=== PATIENT | female | born 1940 | race Caucasian/White ===

== ENCOUNTER → 2018-06-08 | Outpatient (REF) | payer MEDICARE, BC ==
[~2018-06-08] MED LIST: ADLT ASA LOW81 MG PO; ATACAND8 MG PO; ATROVENT NASAL0.03 % NAS; CALTRAT1 PO; CIPRO XR500 M1 OR; CIPRO500 MG OR; COZAAR100 MG PO; COZAAR50 MG PO; DEPO-MEDROL40 MG/ML IJ; FERROUS SULF325 M2 PO; FERROUS SULFAT325 MG PO; FLUARIX QUADRIV1 IN1 IM; FLUARIX QUADRIV1 INJ IM; FLULAVAL IM; HEMOCYTE PLU PO; HYDROCHLOROT25 MG PO; IPRATROPIUM0.03 % NAS; LEVAQUIN500 MG PO; LEVOTHYROXIN125 MCG PO; LEVOTHYROXIN75 MC1 PO; LEVOTHYROXIN88 MC1 PO; MEDDOSEPAK PO; MULT VITAMIN OR; MULTI VITAMN PO; MUPIROCIN2 % EX; NASCOBAL; NITRO-DUR0.4 MG/HR TD; NORITATE1 %; NORITATE1 % EX; NORITATE1 % TOP; PHENERGAN25 MG/TAB PO; PROVERA10 MG OR; SYNTHROID100 MCG PO; SYNTHROID112 MCG PO; SYNTHROID125 MCG OR; SYNTHROID125 MCG PO; VITAMIN B-12500 MCG PO; [UNRECOGNIZED DRUG - OTHER] OR
[2018-06-08 08:54] LABS: HEMATOCRIT 38.7 % (37.0-47.0); HEMOGLOBIN 12.4 g/dl (12.0-16.0); IMMATURE GRANULOCYTES 0.2 % (0.0-5.0); MEAN CORPUSCULAR HGB 31.7 pG CALC (26.0-32.0); NEUT# 2.69 thou/uL (2.00-7.15); RED BLOOD COUNT 3.91 mill/uL (4.20-5.60); RED CELL DISTRI WIDTH 12.4 % (11.5-15.5)
[2018-06-08 09:19] LABS: ALBUMIN 4.2 g/dL (3.2-5.0); BILIRUBIN, TOTAL 0.5 mg/dL (0.0-1.4); CREATININE 1.1 mg/dL (0.5-1.0); POTASSIUM 4.2 mmol/l (3.5-5.1); TOTAL PROTEIN 6.5 g/dL (6.3-8.2)
[2018-06-08 09:45] LABS: TSH, 3RD GENERATION 0.11 uIU/mL (0.47 - 4.68)
== END | disposition home or self-care (01) ==
LOC: LAB 08:22
PROVIDERS: ATTEND Internal Medicine Geriatric Medicine
DX: E03.9 Hypothyroidism, unspecified (principal); I10 Essential (primary) hypertension; E78.5 Hyperlipidemia, unspecified

== ENCOUNTER 2018-09-16 07:04 | Day surgery (SDC) | payer MEDICARE, BC ==
[~2018-09-16 07:04] MED LIST changes: +MULTI VITAMIN1 TAB PO
[2018-09-16 09:23] VITALS: BP 142/64
== END 2018-09-16 09:30 | disposition home or self-care (01) ==
LOC: ENDO 07:04
PROVIDERS: ATTEND Internal Medicine Gastroenterology
PROC: 0DBL8ZX Excision of Transverse Colon, Via Natural or Artificial Opening Endoscopic, Diagnostic (ICD-10-PCS; principal; 2018-09-16)
PROC: 0DBK8ZX Excision of Ascending Colon, Via Natural or Artificial Opening Endoscopic, Diagnostic (ICD-10-PCS; 2018-09-16)
PROC: 0DBN8ZX Excision of Sigmoid Colon, Via Natural or Artificial Opening Endoscopic, Diagnostic (ICD-10-PCS; 2018-09-16)
DX: D12.2 Benign neoplasm of ascending colon (principal); D12.3 Benign neoplasm of transverse colon; K63.5 Polyp of colon; K57.30 Diverticulosis of large intestine without perforation or abscess without bleeding; K64.4 Residual hemorrhoidal skin tags; D50.9 Iron deficiency anemia, unspecified; I10 Essential (primary) hypertension; Z86.010 Personal history of colon polyps

== ENCOUNTER 2020-09-01 12:42 | Emergency (ER) | payer MEDICARE, BC ==
[~2020-09-01] VITALS: Ht 152.4 cm; Wt 65.0 kg
[2020-09-01] MEDS ORDERED: ATENOLOL25 MG PO (13:37)
[2020-09-01] MEDS ORDERED: [UNRECOGNIZED DRUG - OTHER] (13:37)
[2020-09-01 13:38] LABS: HEMOGLOBIN 12.1 g/dl (12.0-16.0); IMMATURE GRANULOCYTES 0.4 % (0.0-5.0); MEAN CELL VOLUME 97.7 fL CALC (80.0-100.0); MEAN CORPUSCULAR HGB 31.1 pG CALC (26.0-32.0); MEAN CORPUSCULAR HGB CONC 31.8 g/dL CAL (32.0-36.0); NEUT# 3.67 thou/uL (2.00-7.15); RED BLOOD COUNT 3.89 mill/uL (4.20-5.60); RED CELL DISTRI WIDTH 12.3 % (11.5-15.5)
[2020-09-01] MEDS ORDERED: OMEGA 31000 MG PO (13:38)
[2020-09-01] MEDS ORDERED: MACROBID100 M1 PO (13:39)
[2020-09-01 13:54] LABS: ALBUMIN 4.3 g/dL (3.2-5.0); ALKALINE PHOSPHATASE 83 u/l (38-126); ANION GAP 12 (6-22 (CALC)); BILIRUBIN, TOTAL 0.3 mg/dL (0.0-1.4); BUN 16 mg/dL (8-23); BUN/CREATININE RATIO 16 (12-20 (CALC)); CARBON DIOXIDE 28 mmol/l (22-30); CHLORIDE 101 mmol/l (95-108); GFR 53 ML/MIN (>=60 (CALC)); GFR FOR AFR.AMER. > 60 ML/MIN (>=60 (CALC)); LIPASE 66 u/l (23-300); MAGNESIUM 1.9 mg/dL (1.6-2.3); POTASSIUM 4.2 mmol/l (3.5-5.1); SGOT/AST 36 u/l (9-36); SODIUM 136 mmol/l (137-146); TOTAL PROTEIN 7.5 g/dL (6.3-8.2)
[2020-09-01 14:24] LABS: TSH, 3RD GENERATION 1.33 uIU/mL (0.47 - 4.68)
[2020-09-01 14:32] LABS: URINE BILIRUBIN - DIPSTICK NEGATIVE (NEGATIVE); URINE BLOOD DIPSTICK NEGATIVE (NEGATIVE); URINE COLOR YELLOW; URINE GLUCOSE - DIPSTICK NEGATIVE (NEGATIVE); URINE KETONE NEGATIVE (NEGATIVE); URINE LEUK ESTERASE NEGATIVE (NEGATIVE); URINE PROTEIN - DIPSTICK NEGATIVE (NEG-TRACE); URINE UROBILINOGEN - DIPSTICK 0.2 E.U./dL (0.2)
[2020-09-01 14:37] LABS: URINE NITRITE - DIPSTICK NEGATIVE (Negative)
[2020-09-01 15:41] VITALS: BP 187/86
== END 2020-09-01 15:54 | disposition home or self-care (01) ==
LOC: ED 12:42
PROVIDERS: Emergency Medicine
DX: R55 Syncope and collapse (principal); T37.8X5A Adverse effect of other specified systemic anti-infectives and antiparasitics, initial encounter; I10 Essential (primary) hypertension; I25.10 Atherosclerotic heart disease of native coronary artery without angina pectoris